=== PATIENT | male | born 1985 | race Caucasian/White ===

== ENCOUNTER 2017-07-02 07:45 | Emergency (ER) | payer OTHER ==
[~2017-07-02] VITALS: Ht 180.3 cm; Wt 141.2 kg
[~2017-07-02 07:45] MED LIST: ALBU0.0939; CRESTOR PO; LORA-476 PO
[2017-07-02 07:50] VITALS: BP 144/79
[2017-07-02] MEDS ORDERED: ALBUTEROL SULFATE/IPRATROPIU 3 ML SOL IH ONE (08:10)
[2017-07-02] MEDS ORDERED: DEXAMETHASONE 10 MG/ML VIAL IM ONE (08:10)
[2017-07-02] MEDS ORDERED: cefTRIAXone 1,000 MG in LIDOCAINE 1% ***ER ONLY *** 2.1 ML IM ONE (08:10)
[2017-07-02] MEDS ORDERED: cefTRIAXone 1,000 MG VIAL ONE (08:17)
[2017-07-02] MEDS ORDERED: LIDOCAINE 1% 50 ML ONE (08:32)
[2017-07-02 09:41] VITALS: BP 135/89
== END 2017-07-02 09:42 | disposition home or self-care (01) ==
LOC: MED 07:45
DX: J45.901 Unspecified asthma with (acute) exacerbation (principal); I10 Essential (primary) hypertension; Z79.899 Other long term (current) drug therapy
CPT/HCPCS: 71046; 94640; 96372; 99284; J0696; J1100; J2001; J7620

== ENCOUNTER 2020-08-12 17:32 | Emergency (ER) | payer OTHER ==
[~2020-08-12] VITALS: Ht 180.3 cm; Wt 137.0 kg
[2020-08-12 17:34] VITALS: BP 193/92
[2020-08-12] MEDS ORDERED: NACL 0.9% 1,000 ML IV ONE (17:55)
[2020-08-12] MEDS ORDERED: ONDANSETRON 4 MG ODT PO ONE (17:55)
[2020-08-12] MEDS ORDERED: KETOROLAC 30 MG/ML VIAL IVP ONE (17:55)
[2020-08-12] MEDS ORDERED: diphenhydrAMINE 50 MG/ML VIAL IVP ONE (17:55)
--- NOTE | 2020-08-12 18:07 | NUR ---
Patient ambulated to bed 6. RN evaluating the patient at bedside.
[2020-08-12 18:13] VITALS: BP 156/79
--- NOTE | 2020-08-12 18:37 | NUR ---
Patient returned from CT scan. RN reevaluating the patient at bedside.
[2020-08-12] MEDS ORDERED: CLON0.1T15 PO ×2 (19:03→22:02)
--- NOTE | 2020-08-12 19:17 | NUR ---
Patient discharged with v/s stable. Written and verbal after care instructions given and explained. Patient alert, oriented and verbalized understanding of instructions. Ambulatory with steady gait. All questions addressed prior to discharge. ID band removed. Patient advised to follow up with PMD. Rx of CLONIDINE given. Patient educated on indication of medication including possible reaction and side effects. Opportunity to ask questions provided and answered.
== END 2020-08-12 19:17 | disposition home or self-care (01) ==
LOC: MED 17:32
DX: R51.9 Headache, unspecified (principal); I16.0 Hypertensive urgency; J45.909 Unspecified asthma, uncomplicated; Z79.899 Other long term (current) drug therapy; Z90.49 Acquired absence of other specified parts of digestive tract; Z98.890 Other specified postprocedural states
CPT/HCPCS: 70450; 99284; Q0162

== ENCOUNTER 2022-01-31 13:55 | Emergency (ER) | payer OTHER ==
[~2022-01-31] VITALS: Ht 177.8 cm; Wt 108.9 kg
[~2022-01-31 13:55] MED LIST changes: +CLON0.1T15 PO
[2022-01-31 14:11] VITALS: BP 158/70
[2022-01-31] MEDS ORDERED: IBUP-2213 PO (14:41)
[2022-01-31] MEDS ORDERED: BENZ-300 PO (14:41)
[2022-02-01] MEDS ORDERED: BENZ-300 PO (07:41)
[2022-02-01] MEDS ORDERED: IBUP-2213 PO (07:42)
== END 2022-01-31 14:58 | disposition home or self-care (01) ==
LOC: MED 13:55
DX: J02.9 Acute pharyngitis, unspecified (principal); H92.02 Otalgia, left ear; J45.909 Unspecified asthma, uncomplicated; I25.10 Atherosclerotic heart disease of native coronary artery without angina pectoris; I10 Essential (primary) hypertension; Z79.899 Other long term (current) drug therapy
CPT/HCPCS: 87081; 99283

== ENCOUNTER 2022-07-12 16:30 | Emergency (ER) | payer OTHER ==
[~2022-07-12] VITALS: Ht 180.3 cm; Wt 132.0 kg
[~2022-07-12 16:30] MED LIST changes: +BENZ-300 PO; +IBUP-2213 PO
[2022-07-12 16:36] VITALS: BP 133/79
[2022-07-12] MEDS ORDERED: IBUPROFEN 600 MG TAB PO ONE (17:15)
--- NOTE | 2022-07-12 17:15 | NUR ---
PT AMB TO CHAIR B
--- NOTE | 2022-07-12 17:20 | NUR ---
PT TAKEN TO XRAY VIA W/C
[2022-07-12] MEDS ORDERED: IBUP-2213 PO (18:40)
--- NOTE | 2022-07-12 19:04 | NUR ---
Note akilone in EDM - 07/12/22 at 1909 by [facility]P Patient discharged with v/s stable. Written and verbal after care instructions FOR ANKLE FRACTURE given and explained. Patient alert, oriented and verbalized understanding of instructions. Wheel Chair Assisted with to car. All questions addressed prior to discharge. ID band removed. Patient advised to follow up with PMD. Rx of IBUPROFEN given. Opportunity to ask questions provided and answered.
--- NOTE | 2022-07-12 19:07 | NUR ---
short leg posterior splint applied to L left leg, juan wrap x 2. pt given crutches and returned safe demonstration
[2022-07-12 19:08] VITALS: BP 132/75
--- NOTE | 2022-07-12 19:08 | NUR ---
Patient discharged with v/s stable. Written and verbal after care instructions FOR ANKLE FRACTURE given and explained. Patient alert, oriented and verbalized understanding of instructions. Wheel Chair Assisted with to car. All questions addressed prior to discharge. ID band removed. Patient advised to follow up with PMD. Rx of IBUPROFEN given. Opportunity to ask questions provided and answered.
== END 2022-07-12 19:08 | disposition home or self-care (01) ==
LOC: MED 16:30
DX: S82.62XA Displaced fracture of lateral malleolus of left fibula, initial encounter for closed fracture (principal); J45.909 Unspecified asthma, uncomplicated; I10 Essential (primary) hypertension; Z79.899 Other long term (current) drug therapy; Z79.1 Long term (current) use of non-steroidal anti-inflammatories (NSAID); W18.40XA Slipping, tripping and stumbling without falling, unspecified, initial encounter; Y93.89 Activity, other specified; Y92.89 Other specified places as the place of occurrence of the external cause; Y99.0 Civilian activity done for income or pay
CPT/HCPCS: 29515; 36415; 73610; 84550; 99284

== ENCOUNTER 2022-12-31 13:50 | Emergency (ER) | payer OTHER ==
[~2022-12-31] VITALS: Ht 180.3 cm; Wt 122.5 kg
[2022-12-31 14:05] VITALS: BP 130/89; PULSE 69; RESP 15; TEMP 98.9; O2SAT 99
[2022-12-31] MEDS ORDERED: KETOROLAC 30 MG/ML VIAL IM ONE (14:30)
[2022-12-31] MEDS ORDERED: ONDANSETRON 4 MG ODT PO ONE (14:30)
[2022-12-31] MEDS ORDERED: ALUMINUM HYD/MAG/SIMETHICONE 30 ML UDC PO ONE (14:30)
[2022-12-31 14:42] VITALS: O2SAT 99
[2022-12-31 14:58] LABS: BASOPHILS # (AUTO) 0.1 K/uL (0.00-0.22); BASOPHILS % (AUTO) 1.5 % (0.0-2.0); EOSINOPHILS # (AUTO) 0.1 K/uL (0-0.4); EOSINOPHILS % (AUTO) 1.2 % (0.0-4.0); HEMATOCRIT 42.4 % (36-52); HEMOGLOBIN 14.2 g/dL (12.0-18.0); LYMPHOCYTES # (AUTO) 1.5 K/uL (2.0-11.5); LYMPHOCYTES % (AUTO) 25.8 % (20.5-51.1); MEAN CORPUSCULAR HEMOGLOBIN 26 pg (27-31); MEAN CORPUSCULAR HGB CONC 34 g/dL (33-37); MEAN CORPUSCULAR VOLUME 78.9 fL (80-94); MONOCYTES # (AUTO) 0.4 K/uL (0.8-1.0); MONOCYTES % (AUTO) 7.6 % (1.7-9.3); NEUTROPHILS # (AUTO) 3.6 K/uL (1.8-7.7); NEUTROPHILS % (AUTO) 63.9 % (42.2-75.2); PLATELET COUNT (AUTO) 191 K/uL (140-450); RED BLOOD CELL COUNT(AUTO) 5.38 MIL/uL (4.20-6.10); RED CELL DISTRIBUTION WIDTH 14.2 % (11.6-13.7); WHITE BLOOD COUNT (AUTO) 5.7 K/uL (4.8-10.8)
[2022-12-31 15:14] LABS: ALANINE AMINOTRANSFERASE 31 U/L (12-78); ALBUMIN 3.8 g/dL (3.4-5.0); ALKALINE PHOSPHATASE 86 U/L (50-136); ANION GAP 9.3 (8-16); ASPARTATE AMINOTRANSFERASE 14 U/L (15-37); CALCIUM 8.8 mg/dL (8.5-10.1); CARBON DIOXIDE 30.8 mmol/L (21-32); CHLORIDE 105 mmol/L (98-107); CREATININE 1.2 mg/dL (0.6-1.3); GFR ARICAN-AMERICAN 88 mL/min (>90); GFR NON ARICAN-AMERICAN 72 mL/min (>90); GLUCOSE 104 mg/dL (74-106); POTASSIUM 4.1 mmol/L (3.5-5.1); SODIUM SERUM 141 mmol/L (136-145); TOTAL BILIRUBIN 0.4 mg/dL (0.0-1.0); TOTAL PROTEIN, SERUM 7.3 g/dL (6.4-8.2); UREA NITROGEN, BLOOD 17 mg/dL (7-18)
[2022-12-31] MEDS ORDERED: MAG30ORA10 PO (15:24)
[2022-12-31] MEDS ORDERED: SUCR1TAB35 PO (15:24)
[2022-12-31] MEDS ORDERED: OMEP40EC23 PO (15:24)
[2022-12-31 16:01] VITALS: TEMP 98.9
[2022-12-31 16:06] VITALS: BP 132/70; PULSE 66; RESP 14; O2SAT 100
== END 2022-12-31 16:01 | disposition home or self-care (01) ==
LOC: MED 13:50
DX: R07.9 Chest pain, unspecified (principal); R10.13 Epigastric pain; J45.909 Unspecified asthma, uncomplicated; I11.9 Hypertensive heart disease without heart failure; Z79.899 Other long term (current) drug therapy
CPT/HCPCS: 36415; 71045; 80053; 84484; 85025; 93005; 96372; 99285; J1885; Q0162

== ENCOUNTER 2023-10-07 17:54 | Emergency (ER) | payer OTHER ==
[~2023-10-07] VITALS: Ht 180.3 cm; Wt 137.9 kg
[~2023-10-07 17:54] MED LIST changes: +MAG30ORA10 PO; +OMEP40EC23 PO; +SUCR-3 PO
[2023-10-07 17:59] VITALS: BP 133/88; PULSE 63; RESP 15; TEMP 97.6; O2SAT 100
[2023-10-07 18:10] VITALS: O2SAT 100
[2023-10-07] MEDS: ALUMINUM HYD/MAG/SIMETHICONE 30 ML UDC PO ONE (18:32)
[2023-10-07 18:33] LABS: BASOPHILS # (AUTO) 0.1 K/uL (0.00-0.22); BASOPHILS % (AUTO) 0.9 % (0.0-2.0); EOSINOPHILS # (AUTO) 0.1 K/uL (0-0.4); EOSINOPHILS % (AUTO) 1.4 % (0.0-4.0); HEMATOCRIT 42.4 % (36-52); HEMOGLOBIN 13.9 g/dL (12.0-18.0); LYMPHOCYTES # (AUTO) 1.7 K/uL (2.0-11.5); LYMPHOCYTES % (AUTO) 30.5 % (20.5-51.1); MEAN CORPUSCULAR HEMOGLOBIN 26 pg (27-31); MEAN CORPUSCULAR HGB CONC 33 g/dL (33-37); MEAN CORPUSCULAR VOLUME 79.1 fL (80-94); MONOCYTES # (AUTO) 0.6 K/uL (0.8-1.0); MONOCYTES % (AUTO) 10.9 % (1.7-9.3); NEUTROPHILS # (AUTO) 3.2 K/uL (1.8-7.7); NEUTROPHILS % (AUTO) 56.3 % (42.2-75.2); PLATELET COUNT (AUTO) 170 K/uL (140-450); RED BLOOD CELL COUNT(AUTO) 5.36 MIL/uL (4.20-6.10); RED CELL DISTRIBUTION WIDTH 14.6 % (11.6-13.7); WHITE BLOOD COUNT (AUTO) 5.7 K/uL (4.8-10.8)
[2023-10-07 18:39] LABS: ANION GAP 8.8 (8-16); CALCIUM 8.9 mg/dL (8.5-10.1); CARBON DIOXIDE 30.4 mmol/L (21-32); CREATININE 1.2 mg/dL (0.6-1.3); POTASSIUM 4.2 mmol/L (3.5-5.1)
[2023-10-07 18:41] VITALS: O2SAT 100
[2023-10-07 18:49] LABS: ALANINE AMINOTRANSFERASE 47 U/L (12-78); ALBUMIN 3.8 g/dL (3.4-5.0); ALKALINE PHOSPHATASE 78 U/L (50-136); ASPARTATE AMINOTRANSFERASE 21 U/L (15-37); BILIRUBIN,DIRECT 0.1 mg/dL (0.0-0.3); LIPASE 40 U/L (16-77); TOTAL BILIRUBIN 0.5 mg/dL (0.0-1.0); TOTAL PROTEIN, SERUM 7.3 g/dL (6.4-8.2)
[2023-10-07] MEDS ORDERED: FAMO-92 PO (18:56)
[2023-10-07] MEDS ORDERED: SUCR1TAB56 PO (18:56)
== END 2023-10-07 18:59 | disposition home or self-care (01) ==
LOC: MED 17:54
DX: K27.9 Peptic ulcer, site unspecified, unspecified as acute or chronic, without hemorrhage or perforation (principal); I10 Essential (primary) hypertension; E78.00 Pure hypercholesterolemia, unspecified; Z90.49 Acquired absence of other specified parts of digestive tract; Z98.890 Other specified postprocedural states; Z79.899 Other long term (current) drug therapy
CPT/HCPCS: 36415; 80048; 80076; 83690; 84484; 85025; 93005; 99284